=== PATIENT | female | born 1985 | race Caucasian/White ===

== ENCOUNTER 2022-10-22 14:15 | Emergency (ER) | payer OTHER ==
[~2022-10-22] VITALS: Ht 170.2 cm; Wt 56.7 kg
[2022-10-22] MEDS ORDERED: TAPAZOLE5 MG PO (14:54)
== END 2022-10-22 18:30 | disposition home or self-care (01) ==
LOC: ER 14:15
DX: G44.209 Tension-type headache, unspecified, not intractable (principal)